=== PATIENT | female | born 1945 | race Caucasian/White ===

== ENCOUNTER → 2023-07-14 14:24 | Outpatient (REF) | payer OTHER, SELFPAY | LOC: DHCBC MAIN 14:24 | PROVIDERS: ATTENDING PHYSICIAN Internal Medicine; FAMILY PHYSICIAN Family Medicine | DX: I10 Essential (primary) hypertension (principal); R55 Syncope and collapse | CPT/HCPCS: 93306 ==

== ENCOUNTER → 2024-01-09 08:43 | Outpatient (REF) | payer OTHER, SELFPAY | LOC: RAD 08:43 | PROVIDERS: ATTENDING PHYSICIAN Family Medicine | DX: M25.561 Pain in right knee (principal); M25.571 Pain in right ankle and joints of right foot | CPT/HCPCS: 73564; 73610 ==

== ENCOUNTER 2024-11-29 10:20 | Emergency (ER) | payer OTHER, SELFPAY ==
[2024-11-29 10:22] VITALS: BP 176/86
[2024-11-29 11:04] VITALS: BP 139/77
[2024-11-29 11:12] VITALS: BMI 22.3
--- NOTE | 2024-11-29 11:16 | ED.CVA ---
History of Present Illness
General
Chief Complaint: CVA/TIA Symptoms
Source: patient
Exam Limitations: none
Time Seen by Provider: 11/29/24 11:15
Nursing documentation reviewed up to this point in time: agreed with
Onset of Stroke Symptoms
Onset of symptoms known: Yes
Date of onset of symptoms: 11/28/24
Time of onset of symptoms: 09:45
Time pt last seen normal is known: Yes
Date last time pt seen normal: 11/28/24
Time last time pt seen normal: 09:44
History of Present Illness
History of Present Illness:
The patient is a pleasant 79-year-old female with a past medical history of hyperlipidemia and hypertension who reports that suddenly at around 9:45 AM yesterday, while driving a car, she could not get words out. Patient reports she was thinking
about what she wanted to say but could not verbalize the words. Patient reports this lasted for about an hour and went away completely. Patient denies any recent headache, vision changes, weakness or numbness. Patient reports this is never
happened before. Patient feels back to her baseline. Patient has had no symptoms today.
Past History
Past History
ED Past Medical History: HTN and Hypercholesterolemia
ED Past Surgical History: Other
Social History
Tobacco: Non-smoker
Alcohol: Other
Drug: None
Personal:
Living: with family
Employment: Other
Family History
Family History: Other
Review of Systems
Review of Systems
Allergies reviewed?: Yes
All Other Systems: ROS reviewed and negative except as documented in HPI and ROS
Constitutional: Reports no symptoms
EENT: Reports no symptoms
Respiratory: Reports no symptoms
Cardiac: Reports no symptoms
ABD/GI: Reports no symptoms
: Reports no symptoms
Musculoskeletal: Reports no symptoms
Skin: Reports no symptoms
Neurological: Reports other
Endocrine: Reports no symptoms
Hematologic/Lymphatic: Reports no symptoms
Psychiatric: Reports no symptoms
Phy Exam
Physical Exam
Physical Exam:
Physical Exam
General: no apparent distress, not acutely ill
Neck: supple. no meningeal signs. normal psoterior pharynx
Heart: s1/s2 regular rate and rhythm, no murmur. equal radial pulses.
Lungs: no acute respiratory distress. clear bilaterally
Abdomen: normal bowel sounds. not tender. no CVAT
Neuro: alert and orientedx3. no focal neurological deficits, word sound clear, 5 out of 5 strength in all extremities. Cranial nerves equal and symmetric bilaterally
Skin: no rash
Psychiatric: well kept. interactive and cooperative
Extremities: no edema. no calf tenderness. negative homans. good distal pulses
Course
Orders/Labs/Results
Orders:
Orders
11/29/24 10:26
Electrocardiogram (*1) Urgent
Reason for Study: Chest Pain
EKG- Treatment ONCE
11/29/24 10:28
CT Head W/o Iv Contrast Urgent
Comment:
Reason For Exam: lost her speech x1 hour yesterday
11/29/24 11:42
Complete Blood Count/With Diff Urgent
Comprehensive Metabolic Panel Urgent
Ferritin Urgent
Comment: ADD ON
Folate Urgent
Comment: ADD ON
TSH Reflex To Free T4 Urgent
Comment: ADD ON
Vitamin B12 Urgent
Comment: ADD ON
11/29/24 12:28
CT Head & Neck Angio W/wo IV Urgent
Comment:
Reason For Exam: apasia yesterday for 1 hour
11/29/24 12:34
Aspirin Chewable [Low Strength Aspirin] 81 mg PO NOW STA
11/29/24 12:42
Clopidogrel Bisulfate [Plavix] 75 mg PO NOW STA
11/29/24 13:53
Add On- LAB Routine
Tests Added?: folate, ferritin, TSH reflex, B12
Patient Education As Directed
Type: Stroke education packet
11/29/24 14:14
NEUROLOGY CONSULT Urgent
Consulting Provider: Zeb Londono
Was physician already notified: Yes
Reason for consult: TIA
Abnormal Lab Results
11/29/24
11:42
RBC 4.04 L 10^6/uL
(4.20-5.40)
Hct 36.9 L %
(37.0-47.0)
MCH 31.7 H pg
(27.0-31.0)
Glucose 104 H mg/dl
(70-99)
11/29/24 11:42
11/29/24 11:42
Vital Signs
Initial and Last Documented VS:
Initial Vital Signs
Temp Pulse Resp BP Pulse Ox
98.4 F 96 16 176/86 99
11/29/24 10:22 11/29/24 10:22 11/29/24 10:22 11/29/24 10:22 11/29/24 10:22
Last Documented Vital Signs
Temp Pulse Resp BP Pulse Ox
98.4 F 76 22 128/74 98
11/29/24 10:22 11/29/24 13:00 11/29/24 13:00 11/29/24 13:00 11/29/24 12:15
MDM/Problems Addressed
Differential Diagnosis Includes:
Acute TIA, atypical headache
MDM/Problems Addressed:
Patient presents with aphasia that has not resolved completely
Chronic conditions affecting care: HTN
Acute Exacerbation and/or Progression of Chronic Illness:
Patient's elevated blood pressure may have contributed to her strokelike symptoms of aphasia
Acute Exacerbation and/or Progression of Chronic Illness: HTN
*Radiology
Radiology exam reviewed: radiology read reviewed
*Pulse Oximetry
SaO2: 98
Oxygen Mode of Delivery: Room air
Patient hypoxic: no
Comment: 98% on room air
*EKG
Interpreted by ED Provider?: Yes
Interpretation: abnormal
Comparison EKG: no comparison EKG present
Rate: normal
Rhythm: sinus
[place]: normal axis
Interval: normal interval
QRS Pattern: low voltage
Ischemia: no ischemia
*Squeegee Finisher Interpretation
Rate: normal
Interpretation: normal
Rhythm: sinus
*Critical Care Note
Total Time (30-74mins, 75-104mins- exclusive of procedures): Not Applicable
Data Reviewed
Review of Other/Old Records Reveals: Radiology Studies
Patient Management
Social determinants of health affecting care: Living situation and Strong social support
ED Attending Note
-
Portions of this chart may have been created with voice recognition software.� Occasional wrong word or��sound alike� substitutions may have occurred due to the inherent limitations of voice recognition software.
Discharge Plan
Departure
Patient Disposition: Home (Routine Discharge)
Date of Disposition: 11/29/24
Time of Disposition: 14:31
Patient with high blood pressure during this ER visit?: Yes
Condition: Good
Covid-19: Not Applicable
Discharge Problem:
TIA (transient ischemic attack)
Instructions: Transient Ischemic Attack (DC), BLOOD PRESSURE
Prescriptions:
New
clopidogrel [Plavix] 75 mg tablet
75 mg PO DAILY Qty: 20 0RF
No Action
famotidine [Pepcid] 40 mg Tablet
40 mg PO DAILYPRN PRN (Reason: gerd)
Theragen Tablet
1 tab PO QPM
pravastatin 80 mg Tablet
80 mg PO HS
losartan 100 mg Tablet
100 mg PO QPM
ezetimibe [Zetia] 10 mg Tablet
10 mg PO QPM
cholecalciferol (vitamin D3) [Vitamin D3] 25 mcg (1,000 unit) Tablet
25 mcg PO QPM
coQ10 (ubiquinol) 100 mg Capsule
100 mg PO QPM
Referrals:
Deyanira Hussein MD [Family Provider, Family Practice]
Jennifer Mata MD [Non-Admitting Privileges, Physical Medicine / Rehab]
Zeb Londono MD [Active, Neurology]
Activity Restrictions/Additional Instructions:
Take the Plavix (75mg) and aspirin (81 mg) for 21 days straight. After the 21 days, discontinue the Plavix but continue the aspirin.
The prescription for Plavix has been called into your pharmacy. The aspirin (81 mg) can be bought [id number] and should be taken once daily
Interventions
Interventions:
*Risk Screen - Suicide Last Done: 11/29/24 10:25
*General Assessment Last Done: 11/29/24 11:12
*Neglect/Abuse Screening Last Done: 11/29/24 11:12
*ED- Fall Risk Assessment Last Done: 11/29/24 11:12
*ED COVID-19 Vaccine History Last Done: 11/29/24 11:12
ED- Pulmonary Assessment Last Done: 11/29/24 11:12
ED- Neurological Assessment Last Done: 11/29/24 13:00
ED- Cardiac Assessment Last Done: 11/29/24 11:12
ED Swallowing Screen Last Done: 11/29/24 12:21
Discharge Date and Time
Print Language: AZERI
[2024-11-29 11:43] VITALS: BP 135/85
[2024-11-29 12:00] VITALS: BP 139/71
[2024-11-29 12:00] LABS: Hematocrit 36.9 % (37.0-47.0); Hemoglobin 12.8 g/dL (12.0-16.0); Mean Corp Hgb Conc. 34.7 g/dL (33.0-37.0); Mean Corpuscular Volume 91.3 fL (81.0-99.0); Nucleated Red Blood Cells % 0 %; Platelet Count 208 10^3/uL (130-400); Red Cell Dist. Width 12.3 % (11.5-14.5)
[2024-11-29 12:24] LABS: ALT (SGPT) 11 U/L (0-35); AST (SGOT) 28 U/L (14-36); Albumin 4.6 g/dl (3.5-5.0); Alkaline Phosphatase 55 U/L (38-126); Blood Urea Nitrogen 14 mg/dl (7-17); Calcium 9.6 mg/dl (8.4-10.2); Carbon Dioxide 26 mmol/L (22-30); Chloride 104 mmol/L (98-107); Estimated Creatinine Clearance 48 ml/min; Glucose 104 mg/dl (70-99); Potassium 4.5 mmol/L (3.5-5.1); Sodium 139 mmol/L (135-145); Total Protein 7.3 g/dl (6.3-8.2); eGFR > 60.00
--- NOTE | 2024-11-29 12:35 | CON.NEURO4 ---
Documented by User: Helen Chicas NP 11/29/24 14:24
Consultation - Neurology 4
-
CONSULTING PHYSICIAN: Zeb Londono MD
REFERRING PHYSICIAN: ER/Dr. Nichols
DICTATED BY: LILO Amos
DATE/TIME OF REQUEST: 11/29/24
DATE/TIME OF CONSULTATION: 11/29/24
Reason for Consultation: Word-finding difficulty
History of Present Illness:
This is a year old right-handed female who has presented to the hospital with report of word-finding difficulty. Patient reports that yesterday (11/28/24) she was in her usual state doing errands, when suddenly around 0945 [address] and could
not get her words out. She reports knowing what she wanted to say but she couldn't find the words. She was able to park the car and switch with her spouse to the passenger seat. Her symptoms resolved after about 10 minutes and she returned to her
baseline. This morning (11/29/24), she was telling her sisters about what happened and they advised her to go the ER to be evaluated. Blood pressure on arrival was 180/108/ CT head was obtained on arrival and is negative for any acute abnormalities.
Patient denies any headache, dizziness, vision changes, swallowing difficultly, numbness, and weakness. She denies any history of TIA, stroke, or similar events in the past.
Past Medical History: HTN, HLD, CKD, insomnia, syncope, diverticulosis, endometriosis, osteoarthritis, vitamin D deficiency, cervical stenosis
Surgical History: Lumpectomy, right carpal tunnel release
Family History: Mother- TIA's, stroke.
Social History: Denies tobacco and illicit drug use. Occasional alcohol.
Allergies: No known allergies.
Home Medications: See below.
Review of Symptoms:
Patient denies any fever, headache, chest pain, shortness of breath, GI or symptoms.
�Per the HPI.�All systems are reviewed negative except above.
Physical Exam:
The patient is afebrile, abdomen is nondistended, breathing is unlabored, skin is warm and dry, no edema.
NIH Stroke Scale:
I performed the NIH stroke scale on the patient on 11/29/24 at 1340. The patient scored 0 points on the NIH stroke scale assessment, which were assigned as follows:
Neurologic Examination:
The patient is awake, alert and oriented x 3. He is able to follow commands and answer questions appropriately. There is no aphasia or dysarthria. On cranial nerve assessment, pupils are 3 mm bilateral, round and reactive to light and
accommodation. Visual baron are full. Extraocular movements are intact. Facial sensations are intact and bilaterally symmetrical, there is no facial asymmetry. Hearing is intact bilaterally to normal conversation volume. Tongue palate and uvula are
midline. Sternocleidomastoid strengths are full bilaterally. Motor strengths are 5/5 bilateral upper and lower extremities on medical research Berkey scale. There is no drift or involuntary movement noted. Deep tendon reflexes are 2+ bilateral
upper and lower extremities and Babinski is absent bilaterally. There was no extinction noted on double simultaneous stimulation. Coordination is intact by finger to nose bilaterally.
Lab Results: See below.
Neuro Imaging:
1. CT Head 11/29/24: No acute intracranial abnormality.
Differentials for the patient's presentation include:
1. Transient aphasia; etiology likely TIA, possibly a small acute ischemic stroke.
2. HTN
3. HLD.
Patient has the following risk factors for their symptoms: HTN, HLD, age
IV Tenecteplase/IAT candidacy: Not a candidate due to resolution of symptoms, NIHSS 0.
Recommendations:
-Continue DAPT with aspirin 81mg and clopidogrel 75mg daily for 21 days. After 21 days, discontinue clopidogrel and continue aspirin 81mg daily monotherapy indefinitely.
-CTA head/neck pending.
-Goal normotension.
-LDL goal <70. LDL was 99 on 11/15/24 at [facility]. Continue home pravastatin 80mg and ezetimibe 10mg daily, will need consideration for a PCSK9 inhibitor to further reduce LDL.
-Goal normoglycemia, hbA1c was 5.2 on 11/15/24 at [facility].
-Provide patient with a stroke education packet.
-Follow-up with Neurology as an outpatient.
Discussed patient care with: Dr. Londono, the patient, patient's spouse
Vital Signs and Labs
-
Vital Signs and Labs:
Vital Signs
Temp Pulse Resp BP Pulse Ox
98.4 F 76 22 128/74 98
11/29/24 10:22 11/29/24 13:00 11/29/24 13:00 11/29/24 13:00 11/29/24 12:15
Lab Results
11/29/24 11:42
11/29/24 11:42
Sodium 139 mmol/L (135-145) 11/29/24 11:42
Potassium 4.5 mmol/L (3.5-5.1) 11/29/24 11:42
BUN 14 mg/dl (7-17) 11/29/24 11:42
Glucose 104 mg/dl (70-99) H 11/29/24 11:42
Calcium 9.6 mg/dl (8.4-10.2) 11/29/24 11:42
NIH Stroke Score
Subsequent NIH Scale
Date of Subsequent NIH Scale: 11/29/24
Time of Subsequent NIH Scale: 13:40
NIH Stroke Score
Level of Consciousness: 0 - Alert
LOC Questions: 0-Answers both correctly
LOC Commands: 0-Performs both correctly
Best Horizontal Gaze: 0-Normal
Visual Baron: 0=Normal, no visual loss
Facial Palsy: 0=Normal, symmetrical
Motor - Right Arm: 0=No drift 10 seconds
Motor - Left Arm: 0=No drift 10 seconds
Motor - Right Le-No drift 5 seconds
Motor - Left Le-No drift 5 seconds
Limb Ataxia: 0-Absent
Sensation: 0-Normal
Best Language: 0-No aphasia
Dysarthria: 0-Normal
Extinction and Inattention: 0-No abnormality
NIH Total Score:: 0
Modified [place] (mRS) Score
Modified [place] Scale (mRS): No symptoms
Score: 0

Documented by User: Lucía Nichols MD 11/29/24 14:32
NIH Stroke Score
NIH Stroke Score
NIH Total Score:: 0
Modified [place] (mRS) Score
Score: 0

Documented by User: Zeb Londono MD 11/29/24 14:41
Consultation - Neurology 4
-
CONSULTING PHYSICIAN: Zeb Londono MD
REFERRING PHYSICIAN: ER/Dr. Nichols
DICTATED BY: LILO Amos
DATE/TIME OF REQUEST: 11/29/24
DATE/TIME OF CONSULTATION: 11/29/24
Reason for Consultation: Word-finding difficulty
History of Present Illness:
This is a year old right-handed female who has presented to the hospital with report of word-finding difficulty. Patient reports that yesterday (11/28/24) she was in her usual state doing errands, when suddenly around [address] and could
not get her words out. She reports knowing what she wanted to say but she couldn't find the words. She was able to park the car and switch with her spouse to the passenger seat. Her symptoms resolved after about 10 minutes and she returned to her
baseline. This morning (8/1/25), she was telling her sisters about what happened and they advised her to go the ER to be evaluated. Blood pressure on arrival was 180/108/ CT head was obtained on arrival and is negative for any acute abnormalities.
Patient denies any headache, dizziness, vision changes, swallowing difficultly, numbness, and weakness. She denies any history of TIA, stroke, or similar events in the past.
Past Medical History: HTN, HLD, CKD, insomnia, syncope, diverticulosis, endometriosis, osteoarthritis, vitamin D deficiency, cervical stenosis
Surgical History: Lumpectomy, right carpal tunnel release
Family History: Mother- TIA's, stroke.
Social History: Denies tobacco and illicit drug use. Occasional alcohol.
Allergies: No known allergies.
Home Medications: See below.
Review of Symptoms:
Patient denies any fever, headache, chest pain, shortness of breath, GI or symptoms.
�Per the HPI.�All systems are reviewed negative except above.
Physical Exam:
The patient is afebrile, abdomen is nondistended, breathing is unlabored, skin is warm and dry, no edema.
NIH Stroke Scale:
I performed the NIH stroke scale on the patient on 11/29/24 at 1340. The patient scored 0 points on the NIH stroke scale assessment, which were assigned as follows:
Neurologic Examination:
The patient is awake, alert and oriented x 3. He is able to follow commands and answer questions appropriately. There is no aphasia or dysarthria. On cranial nerve assessment, pupils are 3 mm bilateral, round and reactive to light and
accommodation. Visual baron are full. Extraocular movements are intact. Facial sensations are intact and bilaterally symmetrical, there is no facial asymmetry. Hearing is intact bilaterally to normal conversation volume. Tongue palate and uvula are
midline. Sternocleidomastoid strengths are full bilaterally. Motor strengths are 5/5 bilateral upper and lower extremities on medical research Berkey scale. There is no drift or involuntary movement noted. Deep tendon reflexes are 2+ bilateral
upper and lower extremities and Babinski is absent bilaterally. There was no extinction noted on double simultaneous stimulation. Coordination is intact by finger to nose bilaterally.
Lab Results: See below.
Neuro Imaging:
1. CT Head 11/29/24: No acute intracranial abnormality.
Differentials for the patient's presentation include:
1. Transient aphasia; etiology likely TIA, possibly a small acute ischemic stroke.
2. HTN
3. HLD.
Patient has the following risk factors for their symptoms: HTN, HLD, age
IV Tenecteplase/IAT candidacy: Not a candidate due to resolution of symptoms, NIHSS 0.
Recommendations:
-Continue DAPT with aspirin 81mg and clopidogrel 75mg daily for 21 days. After 21 days, discontinue clopidogrel and continue aspirin 81mg daily monotherapy indefinitely.
-CTA head/neck pending.
-Goal normotension.
-LDL goal <70. LDL was 99 on 11/15/24 at [facility]. Continue home pravastatin 80mg and ezetimibe 10mg daily, will need consideration for a PCSK9 inhibitor to further reduce LDL.
-Goal normoglycemia, hbA1c was 5.2 on 11/15/24 at [facility].
-Provide patient with a stroke education packet.
-Follow-up with Neurology as an outpatient.
Discussed patient care with: Dr. Londono, the patient, patient's spouse
Studies reviewed.
I have personally examined the patient. I reviewed and agree with the VORTEX OPERATOR's Note.
My addenda:
Awake, alert, interactive. No acute distress.
Speech intact.
Follows 2-step requests w/o difficulty. No tremor.
Extra-ocular movements grossly intact.
Facial movements full and symmetric. Hearing intact to normal conversational volume.
Normal UE movements bilaterally.
Neck: full ROM.
Chest: no dyspnea
Heart: no JVD
Ext: (-) Clubbing, (-) Cyanosis, (-) Edema
IMPRESSIONS/RECOMMENDATIONS:
Abrupt onset of aphasia
Most likely secondary to TIA
Initiate dual antiplatelet therapy for 21 days, then aspirin alone
Outpatient, patient will likely require cardiac monitoring for atrial fibrillation
CTA completed and does not demonstrate significant stenosis
Greater control over LDL levels with goal of less than 70 must be pursued as outpatient, continue home addition of Ezetimibe and pravastatin with consideration for PCSK9 inhibitors as outpatient
Outpatient cancer screening would be appropriate
Goal of normotension
D/W patient / family
All questions answered.
Will continue to follow as needed
NIH Stroke Score
NIH Stroke Score
NIH Total Score:: 0
Modified [place] (mRS) Score
Score: 0
[2024-11-29] MEDS: PLAVIX 75 MG PO (12:48)
[2024-11-29] MEDS: LOW STRENGTH ASPIRIN 81 MG PO (12:48)
[2024-11-29 13:00] VITALS: BP 128/74
[2024-11-29 14:56] VITALS: BP 150/77
[2024-11-29 16:51] LABS: Ferritin 284.0 ng/ml (11.1-264.0)
[2024-11-29 17:23] LABS: Folate > 20.0 ng/ml (2.76-20); Vitamin B12 223 pg/ml (239-931)
== END 2024-11-29 14:58 | disposition home or self-care (01) ==
LOC: EMR 10:20
PROVIDERS: CONSULT PHYSICIAN Psychiatry & Neurology Neurology; EMERGENCY PHYSICIAN Emergency Medicine; FAMILY PHYSICIAN Family Medicine
DX: G45.9 Transient cerebral ischemic attack, unspecified (principal); E78.00 Pure hypercholesterolemia, unspecified; I10 Essential (primary) hypertension; I12.9 Hypertensive chronic kidney disease with stage 1 through stage 4 chronic kidney disease, or unspecified chronic kidney disease; N18.9 Chronic kidney disease, unspecified; E55.9 Vitamin D deficiency, unspecified; K57.90 Diverticulosis of intestine, part unspecified, without perforation or abscess without bleeding; M19.90 Unspecified osteoarthritis, unspecified site
CPT/HCPCS: 99285; 70450; 70496; 70498; 80053; 82607; 82728; 82746; 84443; 85025; 93005; Q9967

== ENCOUNTER → 2024-12-20 10:46 | Outpatient (REF) | payer OTHER, SELFPAY | LOC: HWRCS 10:46 | PROVIDERS: ATTENDING PHYSICIAN Nurse Practitioner; FAMILY PHYSICIAN Family Medicine | DX: G45.9 Transient cerebral ischemic attack, unspecified (principal) | CPT/HCPCS: 93306 ==